=== PATIENT | female | born 1945 | race Caucasian/White ===

== ENCOUNTER → 2018-01-27 | Day surgery (SDC) | payer MEDICAID ==
[~2018-01-27] VITALS: Ht 167.6 cm; Wt 77.5 kg
[~2018-01-27] MED LIST: ACETAMINOPHEN/HYDROcodone 325 MG/5 MG TAB PO PRN; BUPIVACAINE/EPINEPHRINE 0.5% PF 30 ML VIAL ONE; CHLORHEXIDINE GLUCONATE 2 % 1 PACK (2 CLOTHS) TOPICAL PRN; CHLORHEXIDINE GLUCONATE 4% SOLN 120 ML BTL TOPICAL SCH; CLAR10CA3 PO; DICL1CAP4 PO; GABA300C5 PO; INSULIN HUMAN REGULAR 1,000 UNITS/10 ML VIAL SQ PRN; KETOROLAC TROMETHAMINE 60 MG/2 ML (IM) VIAL IM PRN; LACTATED RINGER'S 1000 ML IV PRN; MELO7.5T27 PO; METH500T3 PO; METOPROLOL TARTRATE 25 MG TAB PO PRN; MORPHINE SULFATE 4 MG/ML INJ ONE; NAPR500T2 PO; ONDANSETRON HCL 4 MG/2 ML VIAL IV PUSH PRN; POVIDONE IODINE 5% (ANTISEPSIS KIT) 4 APPLICATIONS EACH NARE PRN; SODIUM CHLORID 0.9% 500 ML IV PRN; TRAM50TA PO; TRIAMCINOLONE ACETONIDE 40 MG/ML VIAL ONE; VITA200013 PO; VOLT1GEL16 TD
--- NOTE | 2018-01-27 12:03 | MP ---
cc: Des Willis MD DATE OF OPERATION: 01/27/2018 PREOPERATIVE DIAGNOSIS: Osteochondral lesion medial femoral condyle, right knee joint. POSTOPERATIVE DIAGNOSIS: 1. Osteochondral lesion medial femoral condyle, right knee joint. 2. Partial tearing of the anterior horn of the medial meniscus. PROCEDURE PERFORMED: Arthroscopic debridement of anterior horn of the medial meniscus with chondroplasty of the medial femoral condyle. DETAILS OF PROCEDURE: The patient was placed on the operating room table in the supine position and adequate general anesthesia was administered by Dr. Bullock the anesthesiologist. The patient's right knee was prepped and draped in usual sterile fashion. Esmarch bandage was used to exsanguinate the right lower extremity after a time-out was called. An anterolateral portal was created for distention of the joint with lactated Ringer's solution. The scope was placed through that portal and a systematic examination did reveal fragmentation of the medial surface of the medial femoral condyle. There also appeared to be partial tearing of the anterior horn of the medial meniscus with fragmentation. The motorized resector was placed into the joint and a subtotal resection of the anterior horn was carried out. The medial femoral condyle chondroplasty was then performed using the motorized resector down to viable cartilage. The remainder of the meniscus was probed and found to be unremarkable. The lateral compartment was also found to be pristine in condition with no evidence of tears or posttraumatic disease. The anterior and posterior cruciate ligaments also appeared to be intact. The patellofemoral joint was also found to be unremarkable. All instruments were removed after a thorough irrigation and aspiration. The instruments were removed with the stab wounds being repaired with s simple suture of 3-0 nylon. An intraarticular injection through the lateral portal was carried out with 10 mL of 0.5% Marcaine with 1 mL of 40 mg Kenalog. Xeroform gauze was applied over both wounds and a bulky dressing applied over this. Tourniquet was deflated after 9 minutes. The procedure was tolerated well and the patient went to the recovery room in satisfactory condition. Sponge count, needle counts and instrument counts were reportedly correct x 2. Des Willis MD [facility] , 11:45 AM , 12:02 PM
[2018-01-27 13:30] VITALS: BP 117/63; PULSE 60; RESP 16; TEMP 97.7; O2SAT 97
--- NOTE | 2018-01-27 23:49 | EKG ---
Date Performed: 01/27/2018 Time Performed: 08:43:48 PTAGE: 72 years EKG: SINUS BRADYCARDIA BORDERLINE ECG INTERPRETATION BASED ON A DEFAULT AGE OF 39 YEARS NO PREVIOUS TRACING DOCTOR: Elias Arceo Interpretating Date/Time 01/27/2018 23:47:20
== END | disposition home or self-care (01) ==
LOC: PHSDC 07:35
PROVIDERS: ATTEND Orthopaedic Surgery
DX: S83.241A Other tear of medial meniscus, current injury, right knee, initial encounter (principal); M17.11 Unilateral primary osteoarthritis, right knee; R94.31 Abnormal electrocardiogram [ECG] [EKG]
CPT/HCPCS: 01400; 29877; 93005; E0113; J2270; J3010; J3301; J7120